=== PATIENT | male | born 1965 | race Two or more races ===

== ENCOUNTER 2018-09-07 21:15 | Inpatient (IN) | payer OTHER ==
[~2018-09-07] VITALS: Ht 165.1 cm; Wt 114.5 kg
--- NOTE | 2018-09-08 01:05 | NUR ---
BOX INSPECTOR NOTES PATIENT ARRIVED AT 1245. A/O X 4. PATIENT IS ON TELE MONITOR. CURRENT READING IS SR 86. PATIENT HAS NO SIGNS OF RESPIRATORY DISTRESS. SKIN IS INTACT WITH MINOR RED BENJAMIN ON CHEST. PATIENT IV SITE IS PATENT AND INTACT. WILL CONTINUE TO MONITOR PATIENT THROUGHOUT THE SHIFT.
[2018-09-08 01:35] VITALS: BP 150/85
[2018-09-08] MEDS ORDERED: METF-442 PO (01:39)
[2018-09-08] MEDS ORDERED: GLIP10TA21 PO (01:40)
[2018-09-08] MEDS ORDERED: AMLO10TA7 PO (01:42)
[2018-09-08] MEDS ORDERED: INSU100V7 SQ (01:44)
[2018-09-08] MEDS ORDERED: DICY10CA37 PO (01:44)
[2018-09-08] MEDS ORDERED: LOSA25TA27 PO (01:55)
[2018-09-08] MEDS ORDERED: METOCLOPRAMIDE HCL 10 MG/2 ML VIAL IV PRN (03:00)
[2018-09-08] MEDS ORDERED: DEXTROSE 50%-WATER 50 ML DISP.SYRIN IV PRN (03:00)
[2018-09-08] MEDS ORDERED: *INSULIN REGULAR(HUMULIN R)HUM 100 UNIT/ML VIAL SQ PRN (03:00)
[2018-09-08] MEDS ORDERED: ACETAMINOPHEN 325 MG TABLET PO PRN (03:00)
[2018-09-08] MEDS ORDERED: ACETAMINOPHEN 650 MG/SUPP.RECT RC PRN (03:00)
[2018-09-08] MEDS ORDERED: INSULIN REGULAR, HUMAN 100 UNIT/ML 3 ML VIAL SQ PRN (03:00)
[2018-09-08] MEDS ORDERED: ENALAPRILAT DIHYD. (2.5MG/ML) 1.25 MG/ML VIAL IV PRN (03:00)
[2018-09-08] MEDS: IV 1/2NS 1000 ML 1,000 ML IV PRN ×2 (03:36→17:11)
[2018-09-08] MEDS: HYDROMORPHONE INJ 2 MG/ML DISP.SYRIN IV PRN ×4 (04:37→19:50)
[2018-09-08 04:38] VITALS: BP 133/87
--- NOTE | 2018-09-08 04:46 | NUR ---
RN NOTES DILAUDID MEDICATION GIVEN FOR ABDOMINAL PAIN 02/12.
--- NOTE | 2018-09-08 06:22 | NUR ---
RN CLOSING NOTES PATIENT IS RESTING IN BED AT THIS TIME. NO S/S OF RESPIRATORY DISTRESS. PATIENT IS ON O2 2 L VIA NC. NO S/S OF SHORTNESS OF BREATH. IV SITE PATENT AND INTACT. PATIENT HAS NO FACIAL GRIMACING AT THIS TIME. PATIENT URINATED ONCE WHEN HE ARRIVED ON THE UNIT. SAFETY PRECAUTIONS IMPLEMENTED. CALL LIGHT WITHIN REACH. WILL ENDORSE TO AM RN.
[2018-09-08 06:27] LABS: BASOPHILS % (AUTO) 0.3 % (0.0-2.0); EOSINOPHILS % (AUTO) 0.7 % (0.0-6.0); HEMATOCRIT 40 % (39-51); LYMPHOCYTES # (AUTO) 2.7 /CMM (0.8-4.8); LYMPHOCYTES % (AUTO) 21.8 % (20.0-44.0); MEAN CORPUSCULAR HGB CONC 33 g/dl (31.0-36.0); MEAN CORPUSCULAR VOLUME 88 fL (80-96); MONOCYTES # (AUTO) 1.3 /CMM (0.1-1.30); MONOCYTES % (AUTO) 10.2 % (2.0-12.0); NEUTROPHILS # (AUTO) 8.4 /CMM (1.8-8.9); PLATELET COUNT (AUTO) 313 /CMM (150-450); WHITE BLOOD COUNT (AUTO) 12.5 K/uL (4.3-11.0)
[2018-09-08 06:58] LABS: ALBUMIN 3.1 g/dL (3.4-5.0); BILIRUBIN,TOTAL 0.5 mg/dL (0.2-1.0); CALCIUM, SERUM 8.6 mg/dL (8.5-10.1); CREATININE 0.7 mg/dL (0.6-1.3); MAGNESIUM 1.8 mg/dL (1.8-2.4); PHOSPHORUS 3.3 mg/dL (2.5-4.9); TOTAL PROTEIN, SERUM 6.7 g/dL (6.4-8.2)
[2018-09-08 08:00] VITALS: BP 130/72
--- NOTE | 2018-09-08 08:00 | NUR ---
RN NOTES RECEIVED PATIENT IN THE BED SLEEPING, PATIENT AROUSE WHEN CALLED NAME OR TOUCHED, V/S STABLE, NO ACUTE RESPIRATORY DISTRESS. CALL LIGHT WITHIN TO REACH, INFUSING 1/2 NS AT 80 ML/HR IN RIGHT FA INTACT. CONTINUED MONITORING.
[2018-09-08] MEDS: PANTOPRAZOLE 40 MG VIAL IV SCH (09:08)
[2018-09-08] MEDS: AMLODIPINE BESYLATE 10 MG TABLET PO SCH (09:08)
[2018-09-08] MEDS: LOSARTAN POTASSIUM 25 MG TABLET PO SCH (09:09)
[2018-09-08] MEDS: BLOOD SUGAR DIAGNOSTIC 1 EACH STRIP VI SCH ×4 (09:09→22:41)
--- NOTE | 2018-09-08 09:10 | NUR ---
RN NOTES ADMINISTERED DILAUDID 0.5 MG/ML IV PUSH FOR ABDOMINAL PAIN 01/12 PER PATIENT REQUEST, V/S TAKEN BP 130/73,P- 86. CONTINUED MONITORING.
--- NOTE | 2018-09-08 12:00 | NUR ---
RN NOTES BS-109 MG/DL, NO COVERAGE GIVEN.
--- NOTE | 2018-09-08 14:16 | NUR ---
RN NOTES ADMINISTERED DILAUDID 0.5 MG/ML IV PUSH FOR UPPER ABDOMINAL PAIN 12/12, V/S TAKEN BP 130/73, P-80, CONTINUED MONITORING.
[2018-09-08 16:00] VITALS: BP 128/81
--- NOTE | 2018-09-08 17:00 | NUR ---
RN NOTES BS-90 MG/DL, NO COVERAGE GIVEN, PATIENT EAT DINNER. NO ACUTE DISTRESS. 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 CONTINUED MONITORING.
--- NOTE | 2018-09-08 18:46 | NUR ---
RN NOTES PATIENT STABLE, REFUSED PAIN AT THIS TIME. INFUSING 1/2 NS AT 80 ML/HR INTACT ON RIGHT FA. CALL LIGHT WITHIN TO EACH. SAFETY PRECAUTION MAINTAINED ALL THE TIME. ENDORSED ONCOMING NURSE FOR PLAN OF CARE.
[2018-09-08 20:00] VITALS: BP 134/84
[2018-09-08] MEDS ORDERED: HYOSCYAMINE SULFATE 0.125 MG TAB.SUBL SL PRN (21:30)
[2018-09-08] MEDS ORDERED: INSULIN GLARGINE, 100 UNIT/ML CARTRIDGE SQ SCH (22:00)
--- NOTE | 2018-09-08 23:18 | NUR ---
RN NOTES PATIENT DID NOT RECEIVE LANTUS. NURSING HEALTH AND PHYSICAL EDUCATION PROFESSOR AWARE.
[2018-09-08 23:35] VITALS: BP 134/84
[2018-09-08] MEDS ORDERED: INSULIN GLARGINE, 100 UNIT/ML CARTRIDGE SQ ONE (23:37)
--- NOTE | 2018-09-08 23:54 | NUR ---
RN NOTES LANTUS NOT RECEIVED. BS IS 88. WILL CONTINUE TO MONITOR BS.
[2018-09-09] MEDS: HYDROMORPHONE INJ 2 MG/ML DISP.SYRIN IV PRN ×3 (00:31→10:32)
[2018-09-09] MEDS: IV 1/2NS 1000 ML 1,000 ML IV PRN (05:24)
[2018-09-09 06:29] LABS: BASOPHILS # (AUTO) 0.1 /CMM (0.0-0.2); BASOPHILS % (AUTO) 0.9 % (0.0-2.0); EOSINOPHILS % (AUTO) 1.8 % (0.0-6.0); HEMATOCRIT 39 % (39-51); HEMOGLOBIN 12.9 g/dL (13.5-17.5); LYMPHOCYTES # (AUTO) 2.6 /CMM (0.8-4.8); LYMPHOCYTES % (AUTO) 24.2 % (20.0-44.0); MEAN CORPUSCULAR HGB CONC 33 g/dl (31.0-36.0); MEAN CORPUSCULAR VOLUME 86 fL (80-96); MONOCYTES % (AUTO) 9.9 % (2.0-12.0); NEUTROPHILS # (AUTO) 6.7 /CMM (1.8-8.9); NEUTROPHILS % (AUTO) 63.2 % (43.0-81.0); PLATELET COUNT (AUTO) 312 /CMM (150-450); RED BLOOD CELL COUNT(AUTO) 4.47 MIL/uL (4.5-6.0); WHITE BLOOD COUNT (AUTO) 10.6 K/uL (4.3-11.0)
[2018-09-09 06:38] LABS: CALCIUM, SERUM 8.4 mg/dL (8.5-10.1); CREATININE 0.7 mg/dL (0.6-1.3); MAGNESIUM 1.6 mg/dL (1.8-2.4); PHOSPHORUS 3.3 mg/dL (2.5-4.9); POTASSIUM 3.7 mmol/L (3.5-5.1)
--- NOTE | 2018-09-09 06:42 | NUR ---
RN CLOSING NOTES PATIENT IS RESTING IN BED. NO S/S OF RESPIRATORY DISTRESS. NO COMPLAINTS OF SHORTNESS OF BREATH. NO FACIAL GRIMACING INDICATING PAIN AT THIS TIME. ALL NEEDS MET THROUGHOUT MY SHIFT. SAFETY PRECAUTIONS IMPLEMENTED. CALL LIGHT WITHIN REACH. WILL ENDORSE TO AM RN.
[2018-09-09] MEDS: BLOOD SUGAR DIAGNOSTIC 1 EACH STRIP VI SCH ×2 (07:38→11:26)
[2018-09-09 07:39] VITALS: BP 143/72
[2018-09-09 08:00] VITALS: BP 143/72
--- NOTE | 2018-09-09 08:00 | NUR ---
RN NOTES RECEIVED PATIENT IN THE BED EATING. PATIENT A/O X4, STABLE REFUSED PAIN AT THIS TIME. ENCOURAGED TO EXPRESS FEELINGS AND CONCERNS. V/S STABLE , PATIENT HAS NO ACUTE RESPIRATORY DISTRESS. INFUSING 1/2 ND AT 80 ML/HE ON RIGHT FA INTACT. PATIENT AMBULATORY SELF CARE. CALL LIGHT WITHIN TO REACH, SAFETY PRECAUTION MAINTAINED ALL THE TIME.
[2018-09-09 08:10] VITALS: BP 143/72
[2018-09-09] MEDS: AMLODIPINE BESYLATE 10 MG TABLET PO SCH (08:10)
[2018-09-09] MEDS: LOSARTAN POTASSIUM 25 MG TABLET PO SCH (08:10)
[2018-09-09] MEDS: PANTOPRAZOLE 40 MG VIAL IV SCH (08:10)
[2018-09-09] MEDS: Magnesium 1GM/D5W 100ML PREMIX 100 ML IV SCH ×2 (10:27→11:20)
--- NOTE | 2018-09-09 10:32 | NUR ---
rn notes administered Dilaudid 1 mg /ml iv push for upper abdominal quadrant pain 12/12 per patient request. v/s taken stable bp 129/76, p-70, continued monitoring.
--- NOTE | 2018-09-09 14:00 | NUR ---
RN NOTES [id number] GOING TO D/C HOME PER HITESH SANCHEZ.
[2018-09-09] MEDS ORDERED: HYOS-28 SL (14:07)
[2018-09-09] MEDS ORDERED: POLYETHYLENE GLYCOL 3350 17 GM POWD.PACK PO PRN (16:00)
--- NOTE | 2018-09-09 16:15 | NUR ---
DISCHARGE NOTES PATIENT DISCHARGE AT THIS TIME GOING BACK TO FRIENDS HOUSE. PATIENT A/O X4, STABLE, V/S STABLE, REFUSED PAIN AT THIS TIME. PATIENT REFUSED TO GIVE STOOL SAMPLE, AND REFUSED TAKE MEDILAX PER [employer]ES SECURITY SHIFT MANAGER'S ORDER . MED RECONCILIATION AND DISCHARGE ORDER REVIEWED AND EXPLAINED TO PATIENT . PATIENT VERBALIZED UNDERSTANDING. PRESCRIPTION HANDED TO THE PATIENT. BELONGING WITH THE PATIENT. PROVIDED CLOTHING, AND TRANSPORTATION TAP CARD. ALSO GIVEN LIVING ARRANGEMENT RESOURCES LIST TO FOLLOW. PATIENT SIGN PAPERWORK. PATIENT WILL FOLLOW PRIMARY MD. ESCORTED PATIENT TO THE LOBBY FOR SAFETY.
[2018-09-09] MEDS ORDERED: POLYETHYLENE GLYCOL 3350 17 GM POWD.PACK PO SCH (17:00)
== END 2018-09-09 17:00 | disposition home or self-care (01) | DRG 249 ==
LOC: MED 09-08 00:40 → TELE 09-08 06:11 → MED 09-08 08:25
PROVIDERS: ADMIT Registered Nurse; ATTEND Registered Nurse
DX: A08.4 Viral intestinal infection, unspecified (principal); E44.1 Mild protein-calorie malnutrition; E66.01 Morbid (severe) obesity due to excess calories; E11.9 Type 2 diabetes mellitus without complications; F17.210 Nicotine dependence, cigarettes, uncomplicated; G89.29 Other chronic pain; I10 Essential (primary) hypertension; K58.9 Irritable bowel syndrome, unspecified; Z59.0 Homelessness; Z76.5 Malingerer [conscious simulation]; Z90.49 Acquired absence of other specified parts of digestive tract; K42.9 Umbilical hernia without obstruction or gangrene; Z79.84 Long term (current) use of oral hypoglycemic drugs; Z68.41 Body mass index [BMI] 40.0-44.9, adult
CPT/HCPCS: 36415; 80048-TC; 80053-TC; 80061-TC; 82962-TC; 83605-TC; 83690-TC; 83735-TC; 84100-TC; 84484-TC; 85025-TC; 87081-TC; C9113; G0378; J1170; J1815; J3475; J3490